=== PATIENT | male | born 1950 | race Caucasian/White ===

== ENCOUNTER 2023-05-09 08:40 | Emergency (ER) | payer MEDICARE, SELFPAY ==
[2023-05-09 08:42] VITALS: BP 136/72; PULSE 69; RESP 20; TEMP 36.7; O2SAT 99; BMI 23.8
--- NOTE | 2023-05-09 08:57 | ED_ITS ---
HPI - Skin/Abscess/Foreign Bdy General Chief complaint: Skin/Abscess/Foreign Body Stated complaint: POSS ABCESS ON R SIDE OF BACK Time Seen by Provider: 05/09/23 08:57 Source: patient Mode of arrival: walk-in History of Present Illness HPI narrative: Patient presents to emergency department with right shoulder abscess. Patient states he started having pain on Thursday. Noted to have an indurated red area to the right posterior shoulder and saw his primary care doctor on Thursday. He was referred to surgery and started on Augmentin. Patient has been taking Augmentin for 3 days. States that the has been doing warm compresses and p ressing on it and there is some white pustular drainage. She states is about the same size as it was on Thursday. Has not increased in size. Patient does not have any fever but states when she pressses on it causes a lot of pain to the shoulder. Patient denies any trauma. He states he also has one like this. They have obtained a referral to a surgeon but has not heard anything from the office yet. Related Data Home Medications Medication Instructions Recorded Confirmed amlodipine 5 mg tablet 5 mg PO DAILY 05/09/23 05/09/23 atorvastatin 10 mg tablet 10 mg PO DAILY 05/09/23 05/09/23 citalopram 10 mg tablet 10 mg PO DAILY 05/09/23 05/09/23 clobetasol 0.05 % topical ointment 1 applic topical DAILY 05/09/23 05/09/23 metformin 500 mg tablet 1,000 mg PO BID 05/09/23 05/09/23 metoprolol succinate 25 mg 25 mg PO DAILY 05/09/23 05/09/23 tablet,extended release 24 hr Previous Rx's Medication Instructions Recorded cephalexin 500 mg capsule 500 mg PO TID 7 days #21 caps 05/09/23 mupirocin 2 % topical ointment 1 applic topical TID #15 grams 05/09/23 sulfamethoxazole 800 1 tab PO BID 7 days #14 tabs 05/09/23 mg-trimethoprim 160 mg tablet (Bactrim DS) Allergies Allergy/AdvReac Type Severity Reaction Status Date / Time Penicillins AdvReac Unknown Verified 05/09/23 08:49 Review of Systems ROS Status of ROS 10 or more systems reviewed and unremarkable except as noted in history and below Exam Narrative Exam Narrative: Nurses notes and vital signs reviewed and patient is not hypoxic. General: Nontoxic, Well-appearing and in no apparent distress. Skin: Warm, dry, no pallor noted. Quarter size area of erythema, induration Without fluctuance to the right posterior shoulder over the Suprascapular Area. There is a central ulceration which expresses pustular exudate. There is no erythema extending from the central area. Head: Normocephalic, atraumatic. Neck: Supple, non-tender. Eye: Pupils are equal, round and EOMI. No scleral icterus. Ears, Nose, Mouth, and Throat: TM clear, no posterior oropharynx erythema or nasal mucosal hypertrophy, uvula is mid-line Oral mucosa is moist Cardiovascular: Regular Rate and Rhythm without murmur, gallop or rub. Respiratory: No accessory muscle use or respiratory distress. Chest Wall: no tenderness Back: No midline thoracic or lumbar vertebral tenderness. No CVA tenderness Musculoskeletal: normal ROM, no calf or popliteal tenderness, no lower extremity edema/swelling GI: Abdomen is soft, non-distended. Normal bowel sounds. No masses appreciated. No tenderness to palpation. No rebound, guarding, or rigidity noted. Neurological: A&O x4. No cranial nerve dysfunction observed. No truncal ataxia. Moves all extremities. Sensation intact. Psychiatric: Cooperative and interactive. Normal mood and affect. Constitutional Vital Signs, click to edit/add: Last Vital Signs Temp 98.0 F 05/09/23 08:42 Pulse 69 05/09/23 08:42 Resp 20 05/09/23 08:42 BP 136/72 05/09/23 08:42 Pulse Ox 99 05/09/23 08:42 O2 Del Method Room Air 05/09/23 08:42 Course Vital Signs Vital signs: Vital Signs Temperature 98.0 F 05/09/23 08:42 Pulse Rate 69 05/09/23 08:42 Respiratory Rate 20 05/09/23 08:42 Blood Pressure 136/72 05/09/23 08:42 Pulse Oximetry 99 05/09/23 08:42 Oxygen Delivery Method Room Air 05/09/23 08:42 Temperature 98.0 F 05/09/23 08:42 Pulse Rate 69 05/09/23 08:42 Respiratory Rate 20 05/09/23 08:42 Blood Pressure 136/72 05/09/23 08:42 Pulse Oximetry 99 05/09/23 08:42 Oxygen Delivery Method Room Air 05/09/23 08:42 MDM - Skin/Abscess/Foreign Bdy MDM Narrative Medical decision making narrative: History and physical are consistent with an infected sebaceous cyst. There is a central ulceration which is currently draining. Family were instructed on how to properly to warm most compresses to the area, apply heat. 7 and the antibiotic Bactrim was added with Keflex. They are to discontinue taking amoxicillin. Exudate was sent for a wound culture.Family is advised to follow up with her primary care doctor in 2 days or return to the emergency department in 2 days for reevaluation. They are to return sooner if symptoms worsen. At this time the patient is without objective evidence of an acute process requiring hospitalization or inpatient management. The patient has remained hemodynamically stable. No additional indication for emergent studies at this time. I answered all questions. Discussed discharge instructions including standard anticipatory guidance and what should prompt a return to the emergency department, including if they get worse are not getting better or develops any new or concerning symptoms. I've given them specific time frame in which to follow-up, and who to follow-up with. The patient demonstrates understanding. Patient is nontoxic and stable for discharge with outpatient follow-up. This note was created with the assistance of a speech recognition program. Although the intention is to generate documents that actually reflects the content of the visit, no guarantees can be provided that every mistake has been identified and corrected by editing. Differential Diagnosis Differential diagnosis: Likely abscess of skin or subcutaneous tissue and ce llulitis Discharge Plan Discharge Chief Complaint: Skin/Abscess/Foreign Body Clinical Impression: Abscess of skin or subcutaneous tissue Patient Disposition: Home, Self-Care Time of Disposition Decision: 09:10 Condition: Good Mode of Transportation: Private Vehicle Prescriptions / Home Meds: New sulfamethoxazole-trimethoprim [Bactrim DS] 800-160 mg tablet 1 tab PO BID 7 Days Qty: 14 0RF cephalexin 500 mg capsule 500 mg PO TID 7 Days Qty: 21 0RF mupirocin 2 % ointment 1 applic topical TID Qty: 15 0RF Discontinued amoxicillin-pot clavulanate 875-125 mg tablet 1 tab PO Q12H No Action amlodipine 5 mg tablet 5 mg PO DAILY atorvastatin 10 mg tablet 10 mg PO DAILY citalopram 10 mg tablet 10 mg PO DAILY clobetasol 0.05 % ointment 1 applic TOPICAL DAILY Patient Comments: apply thursday-thursday, off on the weekends metformin 500 mg tablet 1,000 mg PO BID metoprolol succinate 25 mg tablet extended release 24 hr 25 mg PO DAILY Instructions: Abscess (ED) Additional Instructions: Warm compresses to the area as instructed. Apply mupirocin. Stop taking Augmentin. Take Bactrim and Keflex as prescribed. Follow-up with the surgeon as an outpatient as instructed. Return to the emergency department with any problems or concerns expressed. Stand Alone Forms: Portal Instructions Referrals: KIT CARL [Primary Care Provider] - 1 week Michele Villalobos MD [Physician] - 1 week Venkata Mcclain MD [Physician] - 1 week
== END 2023-05-09 09:40 | disposition home or self-care (01) ==
PROVIDERS: Emergency Provider Emergency Medicine; PCP Family Medicine
DX: L02.413 Cutaneous abscess of right upper limb (principal)
CPT/HCPCS: 87070; 87150; 87186; 99283

== ENCOUNTER 2023-05-21 14:55 | Emergency (ER) | payer MEDICARE, SELFPAY ==
[2023-05-21 15:01] VITALS: BP 128/87; PULSE 102; RESP 16; TEMP 37.2; O2SAT 93; BMI 23.7
--- NOTE | 2023-05-21 15:11 | ED.NAVMDI1 ---
HPI - Nausea/Vomiting/Diarrhea General Chief complaint: Nausea/Vomiting/Diarrhea Stated complaint: DIARRHEA Time Seen by Provider: 05/21/23 15:02 Source: patient Mode of arrival: walk-in History of Present Illness HPI Narrative: 73-year-old male presents for diarrhea. It started right after he had his EGD yesterday. He did not do a prep and did not have a colonoscopy. His is not aware of any abnormalities that they found except it sounds like they had determined that he had a stricture and they did esophageal dilatation. No fever or blood in his stool. Related Data Home Medications Medication Instructions Recorded Confirmed amlodipine 5 mg tablet 5 mg PO DAILY 05/09/23 05/09/23 atorvastatin 10 mg tablet 10 mg PO DAILY 05/09/23 05/09/23 citalopram 10 mg tablet 10 mg PO DAILY 05/09/23 05/09/23 clobetasol 0.05 % topical ointment 1 applic topical DAILY 05/09/23 05/09/23 metformin 500 mg tablet 1,000 mg PO BID 05/09/23 05/09/23 metoprolol succinate 25 mg 25 mg PO DAILY 05/09/23 05/09/23 tablet,extended release 24 hr Previous Rx's Medication Instructions Recorded cephalexin 500 mg capsule 500 mg PO TID 7 days #21 caps 05/09/23 mupirocin 2 % topical ointment 1 applic topical TID #15 grams 05/09/23 sulfamethoxazole 800 1 tab PO BID 7 days #14 tabs 05/09/23 mg-trimethoprim 160 mg tablet (Bactrim DS) Allergies Allergy/AdvReac Type Severity Reaction Status Date / Time Penicillins AdvReac Unknown Verified 05/09/23 08:49 Review of Systems ROS Narrative A ten point review of systems is negative except as noted above. Exam Narrative Exam Narrative: Nurses note and vital signs reviewed and patient is not hypoxic. General: The patient appears well and in no apparent distress. Patient is resting comfortably on cart. Skin: Warm, dry, no pallor noted. There is no rash noted. Head: Normocephalic, atraumatic Eye: Normal conjunctiva, no drainage Ears, Nose, Mouth, and Throat: oral mucosa is moist. Nares patent. Cardiovascular: Regular Rate and Rhythm Respiratory: Patient is in no distress, no accessory muscle use, lungs are clear to auscultation, no wheezing, rales or rhonchi Back: non-tender GI: soft and nontender Musculoskeletal: The patient has no evidence of calf tenderness, no pitting edema, symmetrical pulses noted bilaterally Neurological: awake and alert Psychiatric: Cooperative Constitutional Vital Signs, click to edit/add: Last Vital Signs Temp 98.9 F 05/21/23 15:01 Pulse 102 H 05/21/23 15:01 Resp 16 05/21/23 15:01 BP 128/87 05/21/23 15:01 Pulse Ox 93 L 05/21/23 15:01 O2 Del Method Room Air 05/21/23 15:01 Course Vital Signs Vital signs: Vital Signs Temperature 98.9 F 05/21/23 15:01 Pulse Rate 102 H 05/21/23 15:01 Respiratory Rate 16 05/21/23 15:01 Blood Pressure 128/87 05/21/23 15:01 Pulse Oximetry 93 L 05/21/23 15:01 Oxygen Delivery Method Room Air 05/21/23 15:01 Temperature 98.9 F 05/21/23 15:01 Pulse Rate 102 H 05/21/23 15:01 Respiratory Rate 16 05/21/23 15:01 Blood Pressure 128/87 05/21/23 15:01 Pulse Oximetry 93 L 05/21/23 15:01 Oxygen Delivery Method Room Air 05/21/23 15:01 MDM - Nausea/Vomiting/Diarrhea MDM Narrative Medical decision making narrative: blood work is nonspecific. Stool is heme positive and CT of the chest and abdomen and pelvis is pending. He was given IV Protonix. The patient is signed out to Dr. Olmos at 7 PM. Differential Diagnosis Differential diagnosis: Likely food poisoning, gastroenteritis and other (upper gastrointestinal bleed, lower gastrointestinal bleed) Lab Data Attestation: I reviewed the patient's lab results. Labs: Lab Results 05/21/23 05/21/23 Range/Units 15:15 17:10 WBC 12.3 H (4.0-11.0) 10^3/uL RBC 4.99 (4.70-6.10) 10^6/uL Hgb 14.6 (14.0-18.0) g/dL Hct 43.1 (42.0-54.0) % MCV 86.4 (80.0-94.0) fL MCH 29.3 (25.9-34.0) pg MCHC 33.9 (29.9-35.2) g/dL RDW 13.0 (11.0-15.0) % Plt Count 243 (150-450) 10^3/uL MPV 9.7 (9.5-13.5) fL Neut % (Auto) 84.8 H (43.0-75.0) % Lymph % (Auto) 7.9 L (20.5-60.0) % [place] % (Auto) 6.7 (1.7-12.0) % Eos % (Auto) 0.1 L (0.9-7.0) % Baso % (Auto) 0.2 (0.2-2.0) % Neut # (Auto) 10.4 H (1.4-6.5) 10^3/uL Lymph # (Auto) 1.0 L (1.2-3.8) 10^3/uL [place] # (Auto) 0.8 (0.3-0.8) 10^3/uL Eos # (Auto) 0.0 (0.0-0.7) 10^3/uL Baso # (Auto) 0.0 (0.0-0.1) 10^3/uL Abs Immat Gran (auto) 0.04 H (0.00-0.03) 10^3/uL Imm/Tot Granulo (auto) 0.3 (0.0-0.5) % Sodium 137 (136-145) mmol/L Potassium 3.7 (3.5-5.1) mmol/L Chloride 101 (98-107) mmol/L Carbon Dioxide 26.3 (21.0-32.0) mmol/L Anion Gap 13.4 BUN 12.0 (7.0-18.0) mg/dL Creatinine 0.91 (0.70-1.30) mg/dL Est GFR ( Amer) >60 (>=60) Est GFR (Non-Af Amer) >60 (>=60) BUN/Creatinine Ratio 13.2 Glucose 115 H (74-106) mg/dL Calcium 8.5 (8.5-10.1) mg/dL Stool Occult Blood Positive A Discharge Plan Discharge Chief Complaint: Nausea/Vomiting/Diarrhea Clinical Impression: Gastrointestinal bleed Patient Disposition: Still a Patient Prescriptions / Home Meds: No Action amlodipine 5 mg tablet 5 mg PO DAILY atorvastatin 10 mg tablet 10 mg PO DAILY citalopram 10 mg tablet 10 mg PO DAILY clobetasol 0.05 % ointment 1 applic TOPICAL DAILY Patient Comments: apply thursday-thursday, off on the weekends metformin 500 mg tablet 1,000 mg PO BID metoprolol succinate 25 mg tablet extended release 24 hr 25 mg PO DAILY sulfamethoxazole-trimethoprim [Bactrim DS] 800-160 mg tablet 1 tab PO BID 7 Days Qty: 14 0RF cephalexin 500 mg capsule 500 mg PO TID 7 Days Qty: 21 0RF mupirocin 2 % ointment 1 applic topical TID Qty: 15 0RF Referrals: KIT CARL [Primary Care Provider] - 1 week
[2023-05-21 15:50] LABS: Basophils Percent Auto 0.2 % (0.2-2.0); Eosinophils Percent Auto 0.1 % (0.9-7.0); Hematocrit 43.1 % (42.0-54.0); Hemoglobin 14.6 g/dL (14.0-18.0); Immature Granulocytes Abs Auto 0.04 10^3/uL (0.00-0.03); Immature Granulocytes Pct Auto 0.3 % (0.0-0.5); Lymphocytes Percent Auto 7.9 % (20.5-60.0); Mean Corpuscular HGB Conc 33.9 g/dL (29.9-35.2); Mean Corpuscular Hemoglobin 29.3 pg (25.9-34.0); Mean Corpuscular Volume 86.4 fL (80.0-94.0); Mean Platelet Volume 9.7 fL (9.5-13.5); Monocytes Absolute Auto 0.8 10^3/uL (0.3-0.8); Monocytes Percent Auto 6.7 % (1.7-12.0); Neutrophils Absolute Auto 10.4 10^3/uL (1.4-6.5); Neutrophils Percent Auto 84.8 % (43.0-75.0); Platelet Count 243 10^3/uL (150-450); Red Blood Count 4.99 10^6/uL (4.70-6.10); White Blood Count 12.3 10^3/uL (4.0-11.0)
[2023-05-21] MEDS: 0.9 % SODIUM CHLORIDE 500 ML IV (15:53)
[2023-05-21 15:58] LABS: Anion Gap 13.4; BUN Creatinine Ratio 13.2; Calcium 8.5 mg/dL (8.5-10.1); Carbon Dioxide 26.3 mmol/L (21.0-32.0); Chloride 101 mmol/L (98-107); Estimated GFR (African America >60 (>=60); Estimated GFR (Non-African Ame >60 (>=60); Glucose 115 mg/dL (74-106); Potassium 3.7 mmol/L (3.5-5.1); Sodium 137 mmol/L (136-145)
[2023-05-21 18:01] LABS: Occult Blood Positive
--- NOTE | 2023-05-21 18:25 | CT_ITS ---
The [address] [address] Patient Name: WILBUR SCHOFIELD MRN: [id number] date: 1950 Sex: M Assigned Patient Location: ER Current Patient Location: ED.MAIN Accession/Order Number: [id number] Exam Date: 05/21/2023 19:21 Report Date: 05/21/2023 20:17 At the request of: DARREN OSWALD Procedure: CT chest w con CT chest w con, 05/21/2023 4:21 PM PDT INDICATION: recent EGD/esophageal dilitation, blood in stool COMPARISON: None. TECHNIQUE: Thin-section axial CT images of the chest were acquired with contrast. Supplemental 2D reformatted images were generated and reviewed as needed. Dose reduction techniques were achieved by using automated exposure control and/or adjustment of mA and/or kV according to patient size and/or use of iterative reconstruction technique. FINDINGS: There are mild bibasilar infiltrates, likely representing atelectasis or fibrosis. No segmental or lobar consolidation. No pneumothorax. There are several small collections of air in the posterior mediastinum adjacent to the distal esophagus. A small amount of air also is seen adjacent to the gastric fundus inferior to the esophagogastric diaphragmatic hiatus. No mediastinal, hilar or axillary lymphadenopathy. Heart size within normal limits. No pericardial effusion. Normal caliber aorta. The upper abdomen is unremarkable on a noncontrast scan. No acute fracture or dislocation. CT/CT chest w con IMPRESSION: Posterior pneumomediastinum. As correlated with the clinical history of recent esophageal dilation, this is consistent with a small leak. Mild bibasilar infiltrates, likely representing atelectasis. Electronically authenticated by: Live GIRON Date: 05/21/2023 20:17
--- NOTE | 2023-05-21 18:25 | CT_ITS ---
The [address] [address] Patient Name: WILBUR SCHOFIELD MRN: [id number] date: 1950 Sex: M Assigned Patient Location: ER Current Patient Location: ER Accession/Order Number: [id number] Exam Date: 05/21/2023 19:21 Report Date: 05/21/2023 20:27 At the request of: DARREN OSWALD Procedure: CT abdomen pelvis w con EXAM: CT abdomen pelvis w con HISTORY: recent EGD/esophageal dilitation, blood in stool COMPARISON: Chest CT, same date TECHNIQUE: Axial CT imaging was performed through the abdomen and pelvis with intravenous contrast. Multiplanar reformats were performed. Dose reduction techniques were achieved by using automated exposure control and/or adjustment of mA and/or kV according to patient size and/or use of iterative reconstruction technique. FINDINGS: Lung bases: There are mild bibasilar infiltrates. GI upper: Several small collections of air are seen in the posterior mediastinum adjacent to the distal esophagus. A small amount of air also is seen posterior to the gastric fundus inferior to the diaphragmatic hiatus. Liver: Normal size and contour. Gallbladder: No significant abnormality. No cholelithiasis. Biliary system: No intra or extrahepatic biliary ductal dilatation. Pancreas: Unremarkable. Spleen: Normal size. Adrenal glands: Normal adrenal glands. Kidneys/ureters: Normal contours. No hydronephrosis or visible mass. No nephrolithiasis. Vessels: No aneurysm. Retroperitoneum: No lymphadenopathy. Small bowel: No wall thickening or dilatation. Colon: No wall thickening or dilatation. There are several descending colon diverticuli. Adjacent fat planes are normal. Appendix: Appendix is identified with normal appearance. Peritoneal cavity: No free fluid or pneumoperitoneum. Lower : Unremarkable. Bones:Multilevel spondylosis. No acute bony abnormality. Soft tissues: No acute finding. Additional findings: None. CT/CT abdomen pelvis w con IMPRESSION: Posterior pneumomediastinum. As correlated with the history of recent esophageal dilatation, this is consistent with a small leak. Left colonic diverticulosis without CT evidence for diverticulitis. Mild bibasilar infiltrates consistent with atelectasis. Electronically authenticated by: Live GIRON Date: 05/21/2023 20:27
[2023-05-21 18:41] LABS: Adenovirus F 40/41 NOT DETECTED (NOT DETECTE); Astrovirus NOT DETECTED (NOT DETECTE); Cryptosporidium NOT DETECTED (NOT DETECTE); Cyclospora cayetanensis NOT DETECTED (NOT DETECTE); Entamoeba histolytica NOT DETECTED (NOT DETECTE); Enteroaggregative E.coli NOT DETECTED (NOT DETECTE); Enteropathogenic E.coli NOT DETECTED (NOT DETECTE); Enterotoxigenic E. coli NOT DETECTED (NOT DETECTE); Giardia lamblia NOT DETECTED (NOT DETECTE); Norovirus GI/GII NOT DETECTED (NOT DETECTE); Plesiomonas shigelloides NOT DETECTED (NOT DETECTE); Rotavirus A NOT DETECTED (NOT DETECTE); Salmonella NOT DETECTED (NOT DETECTE); Sapovirus NOT DETECTED (NOT DETECTE); Shiga-like toxin-producing E.C NOT DETECTED (NOT DETECTE); Shigella/Enteroinvasive E.coli NOT DETECTED (NOT DETECTE); Vibrio NOT DETECTED (NOT DETECTE); Vibrio cholerae NOT DETECTED (NOT DETECTE); Yersinia enterocolitica NOT DETECTED (NOT DETECTE)
[2023-05-21] MEDS: PANTOPRAZOLE SODIUM 40 MG VIAL IV (18:49)
[2023-05-21 18:52] VITALS: BP 122/76; PULSE 100; RESP 18; O2SAT 97
[2023-05-21 19:59] LABS: Campylobacter DETECTED (NOT DETECTE)
--- NOTE | 2023-05-21 21:44 | ED.GENADUL1 ---
HPI - General Adult General Chief complaint: Nausea/Vomiting/Diarrhea Stated complaint: DIARRHEA Time Seen by Provider: 05/21/23 15:02 Source: patient Mode of arrival: walk-in Related Data Home Medications Medication Instructions Recorded Confirmed amlodipine 5 mg tablet 5 mg PO DAILY 05/09/23 05/09/23 atorvastatin 10 mg tablet 10 mg PO DAILY 05/09/23 05/09/23 citalopram 10 mg tablet 10 mg PO DAILY 05/09/23 05/09/23 clobetasol 0.05 % topical ointment 1 applic topical DAILY 05/09/23 05/09/23 metformin 500 mg tablet 1,000 mg PO BID 05/09/23 05/09/23 metoprolol succinate 25 mg 25 mg PO DAILY 05/09/23 05/09/23 tablet,extended release 24 hr Previous Rx's Medication Instructions Recorded cephalexin 500 mg capsule 500 mg PO TID 7 days #21 caps 05/09/23 mupirocin 2 % topical ointment 1 applic topical TID #15 grams 05/09/23 sulfamethoxazole 800 1 tab PO BID 7 days #14 tabs 05/09/23 mg-trimethoprim 160 mg tablet (Bactrim DS) Allergies Allergy/AdvReac Type Severity Reaction Status Date / Time Penicillins AdvReac Unknown Verified 05/09/23 08:49 Exam Constitutional Vital Signs, click to edit/add: Last Vital Signs Temp 98.9 F 05/21/23 15:01 Pulse 110 H 05/21/23 21:55 Resp 18 05/21/23 18:52 BP 116/73 05/21/23 21:55 Pulse Ox 97 05/21/23 18:52 O2 Del Method Room Air 05/21/23 15:01 Course Vital Signs Vital signs: Vital Signs Temperature 98.9 F 05/21/23 15:01 Pulse Rate 102 H 05/21/23 15:01 Respiratory Rate 16 05/21/23 15:01 Blood Pressure 128/87 05/21/23 15:01 Pulse Oximetry 93 L 05/21/23 15:01 Oxygen Delivery Method Room Air 05/21/23 15:01 Temperature 98.9 F 05/21/23 15:01 Pulse Rate 110 H 05/21/23 21:55 Respiratory Rate 18 05/21/23 18:52 Blood Pressure 116/73 05/21/23 21:55 Pulse Oximetry 97 05/21/23 18:52 Oxygen Delivery Method Room Air 05/21/23 15:01 Medical Decision Making Lab Data Labs: Lab Results 05/21/23 05/21/23 Range/Units 15:15 17:10 WBC 12.3 H (4.0-11.0) 10^3/uL RBC 4.99 (4.70-6.10) 10^6/uL Hgb 14.6 (14.0-18.0) g/dL Hct 43.1 (42.0-54.0) % MCV 86.4 (80.0-94.0) fL MCH 29.3 (25.9-34.0) pg MCHC 33.9 (29.9-35.2) g/dL RDW 13.0 (11.0-15.0) % Plt Count 243 (150-450) 10^3/uL MPV 9.7 (9.5-13.5) fL Neut % (Auto) 84.8 H (43.0-75.0) % Lymph % (Auto) 7.9 L (20.5-60.0) % [place] % (Auto) 6.7 (1.7-12.0) % Eos % (Auto) 0.1 L (0.9-7.0) % Baso % (Auto) 0.2 (0.2-2.0) % Neut # (Auto) 10.4 H (1.4-6.5) 10^3/uL Lymph # (Auto) 1.0 L (1.2-3.8) 10^3/uL [place] # (Auto) 0.8 (0.3-0.8) 10^3/uL Eos # (Auto) 0.0 (0.0-0.7) 10^3/uL Baso # (Auto) 0.0 (0.0-0.1) 10^3/uL Abs Immat Gran (auto) 0.04 H (0.00-0.03) 10^3/uL Imm/Tot Granulo (auto) 0.3 (0.0-0.5) % Sodium 137 (136-145) mmol/L Potassium 3.7 (3.5-5.1) mmol/L Chloride 101 (98-107) mmol/L Carbon Dioxide 26.3 (21.0-32.0) mmol/L Anion Gap 13.4 BUN 12.0 (7.0-18.0) mg/dL Creatinine 0.91 (0.70-1.30) mg/dL Est GFR ( Amer) >60 (>=60) Est GFR (Non-Af Amer) >60 (>=60) BUN/Creatinine Ratio 13.2 Glucose 115 H (74-106) mg/dL Calcium 8.5 (8.5-10.1) mg/dL Stool Occult Blood Positive A Stl C. cayetanensis PCR Not detected (NOT DETECTE) Stool Rotavirus (PCR) Not detected (NOT DETECTE) Stool Adenovirus (PCR) Not detected (NOT DETECTE) Stool Astrovirus (PCR) Not detected (NOT DETECTE) Stool Campylobacter PCR Detected A* (NOT DETECTE) Stool Cryptosporidium PCR Not detected (NOT DETECTE) St Sh/Enteroin Ecoli PCR Not detected (NOT DETECTE) Stl Enterotoxigenic E PCR Not detected (NOT DETECTE) Stool EPEC (PCR) Not detected (NOT DETECTE) Stl E. histolytica PCR Not detected (NOT DETECTE) Stool Giardia Lamblia PCR Not detected (NOT DETECTE) Stl P. shigelloides PCR Not detected (NOT DETECTE) Stool Salmonella PCR Not detected (NOT DETECTE) Stool Sapovirus (PCR) Not detected (NOT DETECTE) Stl Shiga-like Tx 1 PCR Not detected (NOT DETECTE) St Y.enterocolitica PCR Not detected (NOT DETECTE) Stl Vibrio cholerae PCR Not detected (NOT DETECTE) Stl Enteroaggr Ecoli PCR Not detected (NOT DETECTE) Stl Norovirus GI/GII PCR Not detected (NOT DETECTE) C. difficile Toxin A&B Not detected (NOT DETECTE) Vibrio Culture Not detected (NOT DETECTE) Discharge Plan Discharge Chief Complaint: Nausea/Vomiting/Diarrhea Clinical Impression: Gastrointestinal bleed, Campylobacter enteritis Patient Disposition: Home, Self-Care Prescriptions / Home Meds: No Action amlodipine 5 mg tablet 5 mg PO DAILY atorvastatin 10 mg tablet 10 mg PO DAILY citalopram 10 mg tablet 10 mg PO DAILY clobetasol 0.05 % ointment 1 applic TOPICAL DAILY Patient Comments: apply thursday-thursday, off on the weekends metformin 500 mg tablet 1,000 mg PO BID metoprolol succinate 25 mg tablet extended release 24 hr 25 mg PO DAILY sulfamethoxazole-trimethoprim [Bactrim DS] 800-160 mg tablet 1 tab PO BID 7 Days Qty: 14 0RF cephalexin 500 mg capsule 500 mg PO TID 7 Days Qty: 21 0RF mupirocin 2 % ointment 1 applic topical TID Qty: 15 0RF Instructions: Infectious Colitis (ED) Additional Instructions: drink plenty of fluids. call Dr Houser tomorrow. Go to hospital if diarrhea worsens as discussed Stand Alone Forms: Portal Instructions Referrals: KIT CARL [Primary Care Provider] - 1 week
[2023-05-21 21:45] VITALS: BP 114/65; PULSE 100
[2023-05-21 21:50] VITALS: BP 130/74; PULSE 106
[2023-05-21 21:55] VITALS: BP 116/73; PULSE 110
[2023-05-21] MEDS: 0.9 % SODIUM CHLORIDE 1,000 ML 999 ML IV (22:00)
== END 2023-05-21 23:11 | disposition home or self-care (01) ==
PROVIDERS: Emergency Medicine; Emergency Provider Internal Medicine; PCP Family Medicine
DX: A04.5 Campylobacter enteritis (principal); K92.2 Gastrointestinal hemorrhage, unspecified; Z79.84 Long term (current) use of oral hypoglycemic drugs; Z79.899 Other long term (current) drug therapy
CPT/HCPCS: 36415; 71260; 74177; 80048; 85025; 87045; 87507; 96361; 96374; 99285; G0328; Q9967

== ENCOUNTER 2023-05-23 08:50 | Emergency (ER) | payer MEDICARE, SELFPAY ==
[2023-05-23 08:56] VITALS: BP 132/76; PULSE 68; RESP 18; TEMP 36.4; O2SAT 98; BMI 23.8
--- NOTE | 2023-05-23 09:18 | ED.GENADUL1 ---
HPI - General Adult General Chief complaint: Nausea/Vomiting/Diarrhea Stated complaint: DIARRHEA Time Seen by Provider: 05/23/23 08:59 Source: patient Mode of arrival: walk-in Limitations: no limitations History of Present Illness HPI narrative: patient was evaluated in the ED 05/21/[address] Kwok and Dr Olmos. he was found to have campylobacter infection but declined antibiotics. He now returns to the ED requesting antibiotics. He still has diarrhea but is not complaining of abdominal pain at this time. Related Data Home Medications Medication Instructions Recorded Confirmed amlodipine 5 mg tablet 5 mg PO DAILY 05/09/23 05/23/23 atorvastatin 10 mg tablet 10 mg PO DAILY 05/09/23 05/23/23 citalopram 10 mg tablet 10 mg PO DAILY 05/09/23 05/23/23 clobetasol 0.05 % topical ointment 1 applic topical DAILY 05/09/23 05/23/23 metformin 500 mg tablet 1,000 mg PO BID 05/09/23 05/23/23 metoprolol succinate 25 mg 25 mg PO DAILY 05/09/23 05/23/23 tablet,extended release 24 hr Previous Rx's Medication Instructions Recorded cephalexin 500 mg capsule 500 mg PO TID 7 days #21 caps 05/09/23 mupirocin 2 % topical ointment 1 applic topical TID #15 grams 05/09/23 sulfamethoxazole 800 1 tab PO BID 7 days #14 tabs 05/09/23 mg-trimethoprim 160 mg tablet (Bactrim DS) ciprofloxacin HCl 500 mg tablet 500 mg PO BID #14 tabs 05/23/23 (Cipro) Allergies Allergy/AdvReac Type Severity Reaction Status Date / Time Penicillins AdvReac Unknown Verified 05/23/23 08:56 Exam Narrative Exam Narrative: Nurses notes and vital signs reviewed and patient is not hypoxic. afebrile General: Well-appearing and in no apparent distress. Skin: Warm, dry, no pallor noted. Head: Normocephalic, atraumatic. Eye: Pupils are equal, round and EOMI. No scleral icterus. Ears, Nose, Mouth, and Throat: Oral mucosa is moist Cardiovascular: Regular Rate and Rhythm without murmur, gallop or rub. Respiratory: No accessory muscle use or respiratory distress. Lungs are clear to auscultation, no wheezing, rales or rhonchi Musculoskeletal: normal ROM GI: Abdomen is soft, non-distended. Normal bowel sounds. No tenderness to palpation. No rebound, guarding, or rigidity noted. Neurological: A&O x4. No cranial nerve dysfunction observed. No truncal ataxia. Moves all extremities. Sensation intact. Psychiatric: Cooperative and interactive. Normal mood and affect. Constitutional Vital Signs, click to edit/add: Last Vital Signs Temp 97.6 F 05/23/23 08:56 Pulse 68 05/23/23 08:56 Resp 18 05/23/23 08:56 BP 132/76 05/23/23 08:56 Pulse Ox 98 05/23/23 08:56 O2 Del Method Room Air 05/23/23 08:56 Course Vital Signs Vital signs: Vital Signs Temperature 97.6 F 05/23/23 08:56 Pulse Rate 68 05/23/23 08:56 Respiratory Rate 18 05/23/23 08:56 Blood Pressure 132/76 05/23/23 08:56 Pulse Oximetry 98 05/23/23 08:56 Oxygen Delivery Method Room Air 05/23/23 08:56 Temperature 97.6 F 05/23/23 08:56 Pulse Rate 68 05/23/23 08:56 Respiratory Rate 18 05/23/23 08:56 Blood Pressure 132/76 05/23/23 08:56 Pulse Oximetry 98 05/23/23 08:56 Oxygen Delivery Method Room Air 05/23/23 08:56 Medical Decision Making MDM Narrative Medical decision making narrative: patient will be prescribed cipro to take at home and will see his PCP on 05/27/23 as scheduled. He called and left a message with his surgeon yesterday but had not yet heard back from him. Medical Records Medical records reviewed: Yes I reviewed the patient's medical records Medical records narrative: 05/21/23 - Patient had CT findings consistent with recent surgical procedure. He was found to have campylobacter infection on that visit. Discharge Plan Discharge Chief Complaint: Nausea/Vomiting/Diarrhea Clinical Impression: Campylobacter enteritis Patient Disposition: Home, Self-Care Time of Disposition Decision: 09:28 Prescriptions / Home Meds: New ciprofloxacin HCl [Cipro] 500 mg tablet 500 mg PO BID Qty: 14 0RF No Action amlodipine 5 mg tablet 5 mg PO DAILY atorvastatin 10 mg tablet 10 mg PO DAILY citalopram 10 mg tablet 10 mg PO DAILY clobetasol 0.05 % ointment 1 applic TOPICAL DAILY Patient Comments: apply thursday-thursday, off on the weekends metformin 500 mg tablet 1,000 mg PO BID metoprolol succinate 25 mg tablet extended release 24 hr 25 mg PO DAILY sulfamethoxazole-trimethoprim [Bactrim DS] 800-160 mg tablet 1 tab PO BID 7 Days Qty: 14 0RF cephalexin 500 mg capsule 500 mg PO TID 7 Days Qty: 21 0RF mupirocin 2 % ointment 1 applic topical TID Qty: 15 0RF Instructions: Enteritis (ED) Stand Alone Forms: Portal Instructions Referrals: KIT CARL [Primary Care Provider] - 1 week
== END 2023-05-23 10:01 | disposition home or self-care (01) ==
LOC: ER 09:33
PROVIDERS: Emergency Provider Emergency Medicine; PCP Family Medicine
DX: A04.5 Campylobacter enteritis (principal); Z79.899 Other long term (current) drug therapy; Z79.84 Long term (current) use of oral hypoglycemic drugs
CPT/HCPCS: 99283

== ENCOUNTER 2024-11-21 17:06 | Emergency (ER) | payer MEDICARE, SELFPAY ==
[2024-11-21] VITALS (14 sets, daily range): BP systolic 155; BP diastolic 77; PULSE 77–85; TEMP 36.6; O2SAT 98; BMI 23.7
--- NOTE | 2024-11-21 19:25 | ECG_ITS ---
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
[2024-11-21 19:49] LABS: Basophils Percent Auto 0.2 % (0.2-2.0); Eosinophils Percent Auto 0.1 % (0.9-7.0); Hematocrit 47.5 % (42.0-54.0); Hemoglobin 15.7 g/dL (14.0-18.0); Immature Granulocytes Abs Auto 0.05 10^3/uL (0.00-0.03); Immature Granulocytes Pct Auto 0.5 % (0.0-0.5); Lymphocytes Absolute Auto 0.9 10^3/uL (1.2-3.8); Mean Corpuscular HGB Conc 33.1 g/dL (29.9-35.2); Mean Corpuscular Hemoglobin 29.3 pg (25.9-34.0); Mean Corpuscular Volume 88.6 fL (80.0-94.0); Monocytes Absolute Auto 0.5 10^3/uL (0.3-0.8); Monocytes Percent Auto 4.2 % (1.7-12.0); Neutrophils Absolute Auto 9.4 10^3/uL (1.4-6.5); Platelet Count 261 10^3/uL (150-450); Red Blood Count 5.36 10^6/uL (4.70-6.10); Red Cell Distribution Width 12.9 % (11.0-15.0); White Blood Count 10.8 10^3/uL (4.0-11.0)
--- NOTE | 2024-11-21 19:50 | ED.GENADUL1 ---
HPI HPI - General Adult General Chief complaint: Headache Stated complaint: SEVERE HEADACHE-DR MARKS SENT OVER Time Seen by Provider: 11/21/24 19:14 Source: patient Mode of arrival: walk-in Limitations: no limitations History of Present Illness HPI narrative: 74-year-old male presents to the emergency department for headache. It started about 3 days ago and was intermittent and it was started on the right side of his head. There was no preceding trauma. Now its on the left side of his head. No trauma fever or stiff neck or localized weakness. About 3 weeks ago he had 2 to teeth pulled on the right upper dentition. Related Data Home Medications ?Medication ?Instructions ?Recorded ?Confirmed amlodipine 5 mg tablet 5 mg PO DAILY 05/09/23 05/23/23 atorvastatin 10 mg tablet 10 mg PO DAILY 05/09/23 05/23/23 citalopram 10 mg tablet 10 mg PO DAILY 05/09/23 05/23/23 clobetasol 0.05 % topical ointment 1 applic topical DAILY 05/09/23 05/23/23 metformin 500 mg tablet 1,000 mg PO BID 05/09/23 05/23/23 metoprolol succinate 25 mg 25 mg PO DAILY 05/09/23 05/23/23 tablet,extended release 24 hr Previous Rx's ?Medication ?Instructions ?Recorded cephalexin 500 mg capsule 500 mg PO TID 7 days #21 caps 05/09/23 mupirocin 2 % topical ointment 1 applic topical TID #15 grams 05/09/23 sulfamethoxazole 800 1 tab PO BID 7 days #14 tabs 05/09/23 mg-trimethoprim 160 mg tablet (Bactrim DS) ciprofloxacin HCl 500 mg tablet 500 mg PO BID #14 tabs 05/23/23 (Cipro) ulosyxzgap-ojcolkhybqpxg-lorgflbg 1 cap PO Q6H PRN pain 5 days #20 11/21/24 50 mg-300 mg-40 mg capsule caps (Fioricet) Allergies Allergy/AdvReac Type Severity Reaction Status Date / Time Penicillins AdvReac Unknown Unknown Verified 11/21/24 17:32 Opioid HPI Opioid Management Most Recent Opioid Data: No Data to Display Review of Systems ROS Narrative A ten point review of systems is negative except as noted above. PFSH PFSH Social History Little interest or pleasure in doing things: not at all Feeling down, depressed, or hopeless: not at all Exam Narrative Exam Narrative: Nurses note and vital signs reviewed and patient is not hypoxic. General: The patient appears well and in no apparent distress. Patient is resting comfortably on cart. Skin: Warm, dry, no pallor noted. There is no rash noted. Head: Normocephalic, atraumatic; neck supple, no nuchal rigidity Eye: Normal conjunctiva, no drainage, EOMI. PERRL Ears, Nose, Mouth, and Throat: oral mucosa is moist. Nares patent. Cardiovascular: Regular Rate and Rhythm Respiratory: Patient is in no distress, no accessory muscle use, lungs are clear to auscultation, no wheezing, rales or rhonchi Back: non-tender GI: Soft and nontender Musculoskeletal: The patient has no evidence of calf tenderness, no pitting edema, symmetrical pulses noted bilaterally Neurological: Awake and alert. He knows his name and where he is. On 2 occasions he told me that it is 1925. He knows the month and his 's name and the street that he lives on. Upper and lower extremity strength is 5 out of 5 and symmetric. Psychiatric: Cooperative Constitutional Vital Signs, click to edit/add: Last Vital Signs Temp 98 F 11/21/24 17:32 Pulse 85 11/21/24 21:50 Resp 22 H 11/21/24 21:50 BP 155/77 H 11/21/24 17:32 Pulse Ox 98 11/21/24 17:32 O2 Del Method Room Air 11/21/24 17:32 Course Vital Signs Vital signs: Vital Signs Temperature 98 F 11/21/24 17:32 Pulse Rate 78 11/21/24 17:32 Respiratory Rate 20 11/21/24 17:32 Blood Pressure 155/77 H 11/21/24 17:32 Pulse Oximetry 98 11/21/24 17:32 Oxygen Delivery Method Room Air 11/21/24 17:32 Temperature 98 F 11/21/24 17:32 Pulse Rate 85 11/21/24 21:50 Respiratory Rate 22 H 11/21/24 21:50 Blood Pressure 155/77 H 11/21/24 17:32 Pulse Oximetry 98 11/21/24 17:32 Oxygen Delivery Method Room Air 11/21/24 17:32 Medical Decision Making [facility] Narrative Medical decision making narrative: His workup here is negative including CT brain. I have no clinical suspicion of meningitis. He is feeling tremendously better after 30 mg of Toradol IV. His pain went from a 9 or 10 down to a 1. His is comfortable taking him home. Treatment diagnosis and follow-up were discussed thoroughly Differential Diagnosis Differential Diagnosis: Nonspecific headache, tension headache, intracranial hemorrhage, mass Lab Data Lab results reviewed: Yes I reviewed the patient's lab results Labs: Lab Results 11/21/24 11/21/24 Range/Units 19:38 20:40 WBC 10.8 (4.0-11.0) 10^3/uL RBC 5.36 (4.70-6.10) 10^6/uL Hgb 15.7 (14.0-18.0) g/dL Hct 47.5 (42.0-54.0) % MCV 88.6 (80.0-94.0) fL MCH 29.3 (25.9-34.0) pg MCHC 33.1 (29.9-35.2) g/dL RDW 12.9 (11.0-15.0) % Plt Count 261 (150-450) 10^3/uL MPV 10.0 (9.5-13.5) fL Neut % (Auto) 87.0 H (43.0-75.0) % Lymph % (Auto) 8.0 L (20.5-60.0) % [place] % (Auto) 4.2 (1.7-12.0) % Eos % (Auto) 0.1 L (0.9-7.0) % Baso % (Auto) 0.2 (0.2-2.0) % Neut # (Auto) 9.4 H (1.4-6.5) 10^3/uL Lymph # (Auto) 0.9 L (1.2-3.8) 10^3/uL [place] # (Auto) 0.5 (0.3-0.8) 10^3/uL Eos # (Auto) 0.0 (0.0-0.7) 10^3/uL Baso # (Auto) 0.0 (0.0-0.1) 10^3/uL Abs Immat Gran (auto) 0.05 H (0.00-0.03) 10^3/uL Imm/Tot Granulo (auto) 0.5 (0.0-0.5) % Sodium 139 (136-145) mmol/L Potassium 3.9 (3.5-5.1) mmol/L Chloride 101 (98-107) mmol/L Carbon Dioxide 27.4 (21.0-32.0) mmol/L Anion Gap 14.5 BUN 12.0 (7.0-18.0) mg/dL Creatinine 0.88 (0.70-1.30) mg/dL Est GFR ( Amer) >60 (>=60 mL/min/1.73m^2) Est GFR (Non-Af Amer) >60 (>=60 mL/min/1.73m^2) BUN/Creatinine Ratio 13.6 Glucose 110 H (74-106) mg/dL Calcium 9.0 (8.5-10.1) mg/dL Urine Color Yellow (YELLOW) Urine Clarity Clear (CLEAR) Urine pH 8.0 (5.0-9.0) Ur Specific [place] 1.020 (1.005-1.025) Urine Protein Trace (NEG/TRACE) mg/dL Urine Glucose (UA) Negative (NEGATIVE) mg/dL Urine Ketones 40 A (NEGATIVE) mg/dL Urine Occult Blood Negative (NEGATIVE) Urine Nitrite Negative (NEGATIVE) Urine Bilirubin Negative (NEGATIVE) Urine Urobilinogen 1.0 (0.2-1.0) EU/dL Ur Leukocyte Esterase Negative (NEGATIVE) Urine RBC 0-2 (0-2) #/HPF Urine WBC None seen (NONE SEEN) #/HPF Ur Squamous Epith Cells None seen (NONE/RARE) #/LPF Urine Crystals None seen (None Seen) #/HPF Urine Bacteria None seen (NONE SEEN) #/HPF Urine Casts None seen (NONE SEEN) #/LPF Urine Mucus None seen (NONE SEEN) Ur Culture Indicated? No Imaging Data CT scan - head: Radiologist's impression: ITS Impressions Head CT 11/21/24 20:02 IMPRESSION: Negative for acute intracranial hemorrhage or acute intracranial process. Electronically authenticated by: PHYLLIS GILL Date: 11/21/2024 21:22 Discharge Plan Discharge Chief Complaint: Headache Clinical Impression: Headache Patient Disposition: Home, Self-Care Time of Disposition Decision: 22:32 Condition: Good Mode of Transportation: Private Vehicle Prescriptions / Home Meds: New zedlbvkbyb-zdnhcwineimht-hfrg [Fioricet] 50-300-40 mg capsule 1 cap PO Q6H PRN (Reason: pain) 5 Days Qty: 20 0RF No Action amlodipine 5 mg tablet 5 mg PO DAILY atorvastatin 10 mg tablet 10 mg PO DAILY citalopram 10 mg tablet 10 mg PO DAILY clobetasol 0.05 % ointment 1 applic TOPICAL DAILY Patient Comments: apply thursday-thursday, off on the weekends metformin 500 mg tablet 1,000 mg PO BID metoprolol succinate 25 mg tablet extended release 24 hr 25 mg PO DAILY sulfamethoxazole-trimethoprim [Bactrim DS] 800-160 mg tablet 1 tab PO BID 7 Days Qty: 14 0RF cephalexin 500 mg capsule 500 mg PO TID 7 Days Qty: 21 0RF mupirocin 2 % ointment 1 applic topical TID Qty: 15 0RF ciprofloxacin HCl [Cipro] 500 mg tablet 500 mg PO BID Qty: 14 0RF Print Language: Scottish Instructions: Acute Headache (ED) Referrals: KIT CARL [Primary Care Provider] - 1 week
[2024-11-21 20:02] LABS: Anion Gap 14.5; BUN Creatinine Ratio 13.6; Carbon Dioxide 27.4 mmol/L (21.0-32.0); Chloride 101 mmol/L (98-107); Estimated GFR (African America >60 (>=60 mL/min/1.73m^2); Estimated GFR (Non-African Ame >60 (>=60 mL/min/1.73m^2); Glucose 110 mg/dL (74-106); Potassium 3.9 mmol/L (3.5-5.1); Sodium 139 mmol/L (136-145)
--- NOTE | 2024-11-21 20:02 | CT_ITS ---
The [address] [address] Patient Name: WILBUR SCHOFIELD MRN: [id number] date: 1950 Sex: M Assigned Patient Location: ER Current Patient Location: ED.MAIN Accession/Order Number: [id number] Exam Date: 11/21/2024 19:55 Report Date: 11/21/2024 21:22 At the request of: DARREN OSWALD Procedure: CT head/brain wo con EXAMINATION: CT head/brain wo con HISTORY: [place] COMPARISON: None. TECHNIQUE: CT head without intravenous contrast Dose reduction techniques were achieved by using: automated exposure control and/or adjustment of mA and /or kV according to patient size and/or use of iterative reconstruction technique. FINDINGS: The ventricles and sulci are within normal limits in size and configuration for age. There is no evidence for acute intracranial hemorrhage. There are no foci of abnormal parenchymal attenuation. There is no mass effect or midline shift. There are no abnormal extraaxial fluid collections. CT/CT head/brain wo con IMPRESSION: Negative for acute intracranial hemorrhage or acute intracranial process. Electronically authenticated by: PHYLLIS GILL Date: 11/21/2024 21:22
[2024-11-21 20:53] LABS: Bilirubin Urine NEGATIVE (NEGATIVE); Blood Urine NEGATIVE (NEGATIVE); Clarity Urine CLEAR (CLEAR); Color Urine YELLOW (YELLOW); Glucose Urine UA NEGATIVE (NEGATIVE); Ketones Urine 40 mg/dL (NEGATIVE); Leukocyte Esterase Urine NEGATIVE (NEGATIVE); Nitrite Urine NEGATIVE (NEGATIVE); Protein Urine TRACE mg/dL (NEG/TRACE)
[2024-11-21 21:11] LABS: Bacteria Urine NONE SEEN #/HPF (NONE SEEN); Cast Seen? NONE SEEN #/LPF (NONE SEEN); Crystals Seen? None Seen #/HPF (None Seen); Mucus Urine NONE SEEN (NONE SEEN); RBC Urine 0-2 #/HPF (0-2); Squamous Epithelial Cell Urine NONE SEEN #/LPF (NONE/RARE); Urine Culture Indicated NO; WBC Urine NONE SEEN #/HPF (NONE SEEN)
[2024-11-21] MEDS: KETOROLAC TROMETHAMINE 30 MG/ML VIAL IVP (21:51)
== END 2024-11-21 22:43 | disposition home or self-care (01) ==
PROVIDERS: Emergency Provider Emergency Medicine; PCP Family Medicine
DX: R51.9 Headache, unspecified (principal)
CPT/HCPCS: 36415; 70450; 80048; 81001; 85025; 93005; 96374; 99285; J1885